=== PATIENT | male | born 1985 | race African-American/Black ===

== ENCOUNTER 2017-06-26 00:29 | Emergency (ER) ==
[2017-06-26 00:38] VITALS: BP 152/71; TEMP 98.7; BMI 25.4
[2017-06-26] MEDS ORDERED: ASPIRIN CHEWABLE PO STA (00:49)
--- NOTE | 2017-06-26 01:44 | ED.PDOC ---
General ED Provider: Dr. EAN PERSON Chief Complaint: Chest Pain Stated Complaint: 3 month history of chest pain on the left side. Time Seen by Physician: 00:35 Mode of Arrival: Walk-In Information Source: Patient Nursing and Triage Documentation Reviewed and Agree: Yes Reviewed sepsis parameters & appropriate labs ordered?: No System Inflammatory Response Syndrome: Not Applicable Sepsis Protocol: For patient's 13 years and over: Temp is 96.8 and below OR 101 and greater Pulse >90 BPM Resp >20/minute Acutely Altered Mental Status Are patient's symptoms suggestive of a new infection, such as: -Pneumonia -Skin, Soft Tissue -Endocarditis -UTI -Bone, Joint Infection -Implantable Device -Acute Abdominal Infection -Wound Infection -Meningitis -Blood Stream Catheter Infection -Unknown System Inflammatory Response Syndrome: Not Applicable Cardiovascular Complaint Exam - Chest Pain Complaint/Exam Onset: Gradual Review of Systems - Review Of Systems Constitutional: Reports: No symptoms Eyes: Reports: No symptoms Ears, Nose, Mouth, Throat: Reports: No symptoms Respiratory: Reports: No symptoms Cardiac: Reports: Chest pain GI: Reports: No symptoms : Reports: No symptoms Musculoskeletal: Reports: No symptoms Skin: Reports: No symptoms Neurological: Reports: No symptoms Endocrine: Reports: No symptoms Hematologic/Lymphatic: Reports: No symptoms All Other Systems: Reviewed and Negative Past Medical History - Past Medical History Previously Healthy: Yes Endocrine: Reports: None Cardiovascular: Reports: None Respiratory: Reports: None Hematological: Reports: None Gastrointestinal: Reports: None Genitourinary: Reports: None Neuro/Psych: Reports: None Musculoskeletal: Reports: None Cancer: Reports: None - Surgical History General Surgical History: Reports: Orthopedic (HAND SURGERY (RIGHT HAND) 2007) - Family History Family History: Reports: Unknown - Social History Smoking Status: Current every day smoker, Heavy tobacco smoker Hx Substance Use: No Alcohol Screening: Occasionally - Immunizations Tetanus Shot up to Date: Yes Physical Exam - Physical Exam Appearance: Ill-appearing Ill-appearing: Mild Pain Distress: Moderate Eyes: MARISOL, EOMI, Conjunctiva clear ENT: Ears normal, Nose normal, Oropharynx normal Respiratory: Airway patent, Breath sounds clear, Breath sounds equal, Respirations nonlabored Cardiovascular: RRR, Pulses normal, No rub, No murmur GI/: Soft, Nontender, No masses, Bowel sounds normal, No Organomegaly Musculoskeletal: Normal strength, ROM intact, No edema, No calf tenderness Skin: Warm, Dry, Normal color Neurological: Sensation intact, Motor intact, Reflexes intact, Cranial nerves intact, Alert, Oriented Psychiatric: Affect appropriate, Mood appropriate Interpretation - Radiology Interpretation Radiology Interpretation By: ED Physician Radiology Results: Negative Exam Interpreted: Portable CXR - EKG Interpretation Time of EKG #1: 00:48 Rate: Normal Rhythm: Sinus Ectopy: None [place]: [place] ST Segment: Normal Critical Care Note - Critical Care Note Total Time (mins): 0 Course - Course Hematology/Chemistry: 06/26/17 01:00 06/26/17 01:00 Orders, Labs, Meds: Lab Review 06/26/17 06/26/17 06/26/17 01:00 01:00 01:00 WBC 6.92 RBC 5.21 Hgb 15.1 Hct 43.5 MCV 83.5 MCH 29.0 MCHC 34.7 RDW Coeff of Jamie 12.6 Plt Count 204 Immature Gran % (Auto) 0.1 Neut % (Auto) 53.9 Lymph % (Auto) 36.0 [place] % (Auto) 9.1 Eos % (Auto) 0.3 Baso % (Auto) 0.6 Immature Gran # (Auto) 0.0 Neut # (Auto) 3.7 Lymph # (Auto) 2.5 [place] # (Auto) 0.6 Eos # (Auto) 0.0 Baso # (Auto) 0.0 Sodium 139 Potassium 3.5 Chloride 100 Carbon Dioxide 28 Anion Gap 14.5 BUN 10 Creatinine 1.25 H Estimated GFR (MDRD) 81.00 BUN/Creatinine Ratio 8.00 Glucose 122 H Calcium 9.9 Total Bilirubin 1.0 AST 20 ALT 24 Alkaline Phosphatase 74 Total Creatine Kinase 199 CK-MB (CK-2) 0.8 CK-MB (CK-2) % 0.68818 Troponin I 0.0190 B-Natriuretic Peptide < 10 Total Protein 7.9 Albumin 4.1 Globulin 3.8 Albumin/Globulin Ratio 1.08 06/26/17 01:50 WBC RBC Hgb Hct MCV MCH MCHC RDW Coeff of Jamie Plt Count Immature Gran % (Auto) Neut % (Auto) Lymph % (Auto) [place] % (Auto) Eos % (Auto) Baso % (Auto) Immature Gran # (Auto) Neut # (Auto) Lymph # (Auto) [place] # (Auto) Eos # (Auto) Baso # (Auto) Sodium Potassium Chloride Carbon Dioxide Anion Gap BUN Creatinine Estimated GFR (MDRD) BUN/Creatinine Ratio Glucose Calcium Total Bilirubin AST ALT Alkaline Phosphatase Total Creatine Kinase CK-MB (CK-2) CK-MB (CK-2) % Troponin I 0.0220 B-Natriuretic Peptide Total Protein Albumin Globulin Albumin/Globulin Ratio Orders Category Date Time Status EKG-(ED ONLY) Stat CARDIO 06/26/17 00:49 Completed ED MANAGER LEARNING APPLIED .ONCE EMERGENCY 06/26/17 00:49 Active B-TYPE NATRIURETIC PEPTIDE Stat LAB 06/26/17 01:00 Completed CBC W/ AUTO DIFF Stat LAB 06/26/17 01:00 Completed COMPREHENSIVE METABOLIC PANEL Stat LAB 06/26/17 01:00 Completed CREATINE KINASE Stat LAB 06/26/17 01:00 Completed TROPONIN I Stat LAB 06/26/17 01:00 Completed TROPONIN I Stat LAB 06/26/17 01:50 Completed Aspirin [Aspirin Chewable] MEDS 06/26/17 00:49 Discontinued 324 mg PO ONCE STA CHEST, 1V AP ONLY Stat RADS 06/26/17 00:49 Taken Medications Discontinued Medications Generic Name Dose Route Start Last Admin Trade Name Freq PRN Reason Stop Dose Admin Aspirin 324 mg 06/26/17 00:49 06/26/17 01:00 Aspirin Chewable PO 06/26/17 00:50 324 mg ONCE STA Administration Vital Signs: Temp Pulse Resp BP Pulse Ox 06/26/17 00:30 98.7 F 89 14 152/71 H 97 LUISITO Risk Score Age >/= 65: No >/= 3 CAD Risk Factors: No Known CAD (Stenosis >/= 50%): No ASA Use in Past 7 Days: No Severe Angina (>/= 2 episodes in 24 hours): No EKG ST Changes >/= 0.5mm: No Postive Cardiac Marker: No LUISITO Total Score: 0 LUISITO Risk Score: Risk Score Odds of by 30D 0 0.1 (0.1-0.2) 1 0.3 (0.2-0.3) 2 0.4 (0.3-0.5) 3 0.7 (0.6-0.9) 4 1.2 (1.0-1.5) 5 2.2 (1.9-2.6) 6 3.0 (2.5-3.6) 7 4.8 (3.8-6.1) Departure - Departure Time of Disposition: 02:14 Disposition: HOME SELF-CARE Discharge Problem: Chest pain Instructions: Chest Pain (DC), Noncardiac Chest Pain (ED) Condition: Stable Pt referred to PMD for follow-up: Yes IPMP verified?: No Additional Instructions: Decrease you weight lifting until your muscle heal. Follow up with PCP in 3 day. Prescriptions: Ibuprofen [Motrin] 600 mg PO Q6H PRN #30 tablet PRN Reason: Analgesia Allergies/Adverse Reactions: Allergies No Known Allergies Allergy (Unverified 06/26/17 00:33) Home Medications: Ambulatory Orders Ibuprofen [Motrin] 600 mg PO Q6H PRN #30 tablet 06/26/17
--- NOTE | 2017-06-26 07:35 | DI ---
EXAM: Single frontal view of the chest HISTORY: Left-sided chest pain. COMPARISON: None FINDINGS: The cardiomediastinal silhouette is unremarkable. There is no pneumothorax or pleural effu kristen. There is no consolidation, nodule or mass. The osseous structures are unremarkable. IMPRESSION: No acute cardiopulmonary process.
== END 2017-06-26 02:19 | disposition home or self-care (01) ==
LOC: ED 00:29
DX: R07.9 Chest pain, unspecified (principal); F17.210 Nicotine dependence, cigarettes, uncomplicated
CPT/HCPCS: 36415; 80053; 82550; 82553; 83880; 84484; 85025; 93005; 93010; 99284